=== PATIENT | female | born 1995 | race Caucasian/White ===

== ENCOUNTER 2023-01-04 13:25 | Emergency (ER) | payer SELFPAY ==
[~2023-01-04] VITALS: Ht 162.6 cm; Wt 127.4 kg
[2023-01-04] VITALS (7 sets, daily range): BP systolic 128–146; BP diastolic 78–88
[2023-01-04 14:41] LABS: URINE BILIRUBIN - DIPSTICK NEGATIVE (NEGATIVE); URINE BLOOD DIPSTICK TRACE-INTACT (NEGATIVE); URINE COLOR YELLOW; URINE GLUCOSE - DIPSTICK >=1000 mg/dL (NEGATIVE); URINE KETONE TRACE mg/dL (NEGATIVE); URINE LEUK ESTERASE NEGATIVE (NEGATIVE); URINE PROTEIN - DIPSTICK 100 mg/dL (NEG-TRACE); URINE UROBILINOGEN - DIPSTICK 0.2 E.U./dL (0.2)
[2023-01-04 14:42] LABS: BASO% 0.6 % (0-3); EOS% 1.3 % (0-8); HEMATOCRIT 45.5 % (37.0-47.0); HEMOGLOBIN 15.3 g/dl (12.0-16.0); IMMATURE GRANULOCYTES 0.4 % (0.0-5.0); LYMPH% 21.5 % (15-41); MEAN CELL VOLUME 83.8 fL CALC (80.0-100.0); MEAN CORPUSCULAR HGB 28.2 pG CALC (26.0-32.0); MEAN CORPUSCULAR HGB CONC 33.6 g/dL CAL (32.0-36.0); MONO% 6.1 % (2-13); NEUT# 8.49 thou/uL (2.00-7.15); NEUT% 70.1 % (42-76); RED BLOOD COUNT 5.43 mill/uL (4.20-5.60); RED CELL DISTRI WIDTH 12.8 % (11.5-15.5)
[2023-01-04 14:45] LABS: URINE NITRITE - DIPSTICK NEGATIVE (Negative)
[2023-01-04 14:46] LABS: URINE EPITHELIAL CELLS FEW EPI/hpf (0-FEW); URINE RBC 0-2 RBC/hpf (0-5)
[2023-01-04 14:47] LABS: URINE MUCUS MODERATE hpf (NONE-FEW)
[2023-01-04 15:02] LABS: ALBUMIN 4.4 g/dL (3.2-5.0); ALKALINE PHOSPHATASE 95 u/l (38-126); ANION GAP 14 (6-22 (CALC)); BILIRUBIN, TOTAL 0.3 mg/dL (0.02-1.3); BUN 10 mg/dL (7-17); BUN/CREATININE RATIO 19 (12-20 (CALC)); CARBON DIOXIDE 28 mmol/l (22-30); CHLORIDE 96 mmol/l (95-108); CREATININE 0.5 mg/dL (0.5-1.0); GFR FOR AFR.AMER. > 60 ML/MIN (>=60 (CALC)); GFR OTHER RACES > 60 ML/MIN (>=60 (CALC)); POTASSIUM 4.8 mmol/l (3.5-5.1); SGOT/AST 25 u/l (14-36); SODIUM 133 mmol/l (137-146); TOTAL PROTEIN 7.5 g/dL (6.3-8.2)
[2023-01-04] MEDS ORDERED: METFORMIN HCL1000 MG PO (17:03)
== END 2023-01-04 19:11 | disposition home or self-care (01) | DRG 392 ==
LOC: ED 13:25
PROVIDERS: Family Medicine
DX: R10.31 Right lower quadrant pain (principal); E11.9 Type 2 diabetes mellitus without complications; E66.01 Morbid (severe) obesity due to excess calories; Z98.1 Arthrodesis status; Z79.84 Long term (current) use of oral hypoglycemic drugs
CPT/HCPCS: Q9967

== ENCOUNTER 2023-04-23 14:11 | Emergency (ER) | payer BC ==
[2023-04-23] VITALS (7 sets, daily range): BP systolic 115–140; BP diastolic 75–103
[~2023-04-23] VITALS: Ht 162.6 cm; Wt 125.6 kg
[~2023-04-23 14:11] MED LIST: METFORMIN HCL1000 MG PO
[2023-04-23 14:42] LABS: BASO% 0.8 % (0-3); EOS% 2.2 % (0-8); HEMOGLOBIN 14.7 g/dl (12.0-16.0); IMMATURE GRANULOCYTES 0.3 % (0.0-5.0); LYMPH% 29.4 % (15-41); MEAN CELL VOLUME 84.5 fL CALC (80.0-100.0); MEAN CORPUSCULAR HGB 28.2 pG CALC (26.0-32.0); MEAN CORPUSCULAR HGB CONC 33.4 g/dL CAL (32.0-36.0); MONO% 6.2 % (2-13); NEUT# 5.39 thou/uL (2.00-7.15); NEUT% 61.1 % (42-76); RED BLOOD COUNT 5.21 mill/uL (4.20-5.60); RED CELL DISTRI WIDTH 12.2 % (11.5-15.5)
[2023-04-23 14:54] LABS: ALBUMIN 4.2 g/dL (3.2-5.0); ALKALINE PHOSPHATASE 106 u/l (38-126); ANION GAP 12 (6-22 (CALC)); BILIRUBIN, TOTAL 0.4 mg/dL (0.02-1.3); BUN 7 mg/dL (7-17); BUN/CREATININE RATIO 13 (12-20 (CALC)); CARBON DIOXIDE 26 mmol/l (22-30); CHLORIDE 97 mmol/l (95-108); CREATININE 0.5 mg/dL (0.5-1.0); GFR FOR AFR.AMER. > 60 ML/MIN (>=60 (CALC)); GFR OTHER RACES > 60 ML/MIN (>=60 (CALC)); LIPASE 75 u/l (23-300); POTASSIUM 4.3 mmol/l (3.5-5.1); SGOT/AST 28 u/l (14-36); SODIUM 131 mmol/l (137-146); TOTAL PROTEIN 7.7 g/dL (6.3-8.2)
[2023-04-23] MEDS ORDERED: MELOXICAM15 MG PO (15:01)
[2023-04-23] MEDS ORDERED: TRAMADOL HCL50 MG PO (15:01)
[2023-04-23 15:11] LABS: URINE BILIRUBIN - DIPSTICK NEGATIVE (NEGATIVE); URINE BLOOD DIPSTICK LARGE (NEGATIVE); URINE COLOR YELLOW; URINE GLUCOSE - DIPSTICK >=1000 mg/dL (NEGATIVE); URINE KETONE NEGATIVE (NEGATIVE); URINE LEUK ESTERASE NEGATIVE (NEGATIVE); URINE PH 6.5 (4.5-8.0); URINE PROTEIN - DIPSTICK TRACE mg/dL (NEG-TRACE); URINE UROBILINOGEN - DIPSTICK 0.2 E.U./dL (0.2)
[2023-04-23 15:12] LABS: URINE NITRITE - DIPSTICK NEGATIVE (Negative)
[2023-04-23 15:22] LABS: URINE RBC 50-100 RBC/hpf (0-5); URINE SQUAMOUS EPITHELIAL CELL FEW EPI/hpf (0-FEW)
== END 2023-04-23 18:21 | disposition home or self-care (01) | DRG 392 ==
LOC: ED 14:11
PROVIDERS: Family Medicine
DX: R10.31 Right lower quadrant pain (principal); E11.9 Type 2 diabetes mellitus without complications; N80.9 Endometriosis, unspecified; Z79.84 Long term (current) use of oral hypoglycemic drugs
CPT/HCPCS: Q9967

== ENCOUNTER 2023-11-25 16:14 | Emergency (ER) | payer BC ==
[~2023-11-25] VITALS: Ht 162.6 cm; Wt 119.0 kg
[~2023-11-25 16:14] MED LIST changes: +MELOXICAM15 MG PO; +TRAMADOL HCL50 MG PO
[2023-11-25] MEDS ORDERED: ONDANSETRON HCl 4 MG/2 ML SDV IV ONE (16:50)
[2023-11-25] MEDS ORDERED: MORPHINE SULFATE 4 MG/ML VIAL IV ONE (16:50)
[2023-11-25] MEDS ORDERED: SODIUM CHLORIDE 0.9% 1,000 ML IV ONE (16:50)
[2023-11-25 16:51] VITALS: BP 127/88
[2023-11-25 16:58] LABS: BASO% 0.6 % (0-3); EOS% 4.4 % (0-8); HEMOGLOBIN 15.3 g/dl (12.0-16.0); IMMATURE GRANULOCYTES 0.3 % (0.0-5.0); LYMPH% 27.2 % (15-41); MEAN CELL VOLUME 84.6 fL CALC (80.0-100.0); MEAN CORPUSCULAR HGB 28.8 pG CALC (26.0-32.0); MONO% 5.9 % (2-13); NEUT# 7.89 thou/uL (2.00-7.15); NEUT% 61.6 % (42-76); RED BLOOD COUNT 5.32 mill/uL (4.20-5.60); RED CELL DISTRI WIDTH 12.6 % (11.5-15.5)
[2023-11-25 17:27] LABS: URINE BILIRUBIN - DIPSTICK Negative (NEGATIVE); URINE BLOOD DIPSTICK Negative (NEGATIVE); URINE GLUCOSE - DIPSTICK 500 mg/dL (NEGATIVE); URINE KETONE Negative (NEGATIVE); URINE LEUK ESTERASE Negative (NEGATIVE); URINE NITRITE - DIPSTICK Negative (Negative); URINE PH 5.5 (4.5-8.0); URINE PROTEIN - DIPSTICK >=300 mg/dL (NEG-TRACE); URINE SPECIFIC GRAVITY >=1.030; URINE UROBILINOGEN - DIPSTICK 0.2 E.U./dL (0.2)
[2023-11-25 17:28] LABS: URINE COLOR Yellow
[2023-11-25 17:29] LABS: ALBUMIN 4.5 g/dL (3.2-5.0); ALKALINE PHOSPHATASE 81 u/l (38-126); BILIRUBIN, TOTAL 0.3 mg/dL (0.02-1.3); BUN 16 mg/dL (7-17); BUN/CREATININE RATIO 25 (12-20 (CALC)); CARBON DIOXIDE 23 mmol/l (22-30); CHLORIDE 106 mmol/l (95-108); CREATININE 0.6 mg/dL (0.5-1.0); GFR FOR AFR.AMER. > 60 ML/MIN (>=60 (CALC)); GFR OTHER RACES > 60 ML/MIN (>=60 (CALC)); SGOT/AST 24 u/l (14-36); TOTAL PROTEIN 8.5 g/dL (6.3-8.2)
[2023-11-25 17:34] LABS: URINE BACTERIA FEW hpf; URINE SQUAMOUS EPITHELIAL CELL FEW EPI/hpf (0-FEW); URINE WBC 0-2 WBC/hpf (0-5)
[2023-11-25 17:35] LABS: URINE HYALINE CAST FEW lpf (NONE-RARE)
[2023-11-25 17:38] LABS: ANION GAP 13 (6-22 (CALC)); SODIUM 138 mmol/l (137-146)
[2023-11-25 17:47] LABS: LIPASE 100 u/l (23-300)
[2023-11-25] MEDS ORDERED: MORPHINE SULFATE 4 MG/ML VIAL IV STA (18:14)
[2023-11-25 19:17] VITALS: BP 135/83
[2023-11-25] MEDS ORDERED: KETOROLAC TROMETHAMINE 15 MG/ML SDV IV ONE (19:20)
[2023-11-25] MEDS ORDERED: TRAMADOL HCL50 MG PO (22:01)
[2023-11-25 22:21] VITALS: BP 135/83
== END 2023-11-25 22:30 | disposition home or self-care (01) | DRG 392 ==
LOC: ED 16:14
PROVIDERS: Family Medicine
DX: R10.31 Right lower quadrant pain (principal); R30.0 Dysuria; E11.9 Type 2 diabetes mellitus without complications; Z79.84 Long term (current) use of oral hypoglycemic drugs
CPT/HCPCS: Q9967

== ENCOUNTER 2024-05-07 15:19 | Emergency (ER) | payer BC ==
[~2024-05-07] VITALS: Ht 162.6 cm; Wt 117.0 kg
[2024-05-07 15:25] VITALS: BP 143/75
[2024-05-07 15:31] VITALS: BP 144/88
[2024-05-07 15:46] VITALS: BP 124/82
[2024-05-07 15:49] LABS: BASO% 0.2 % (0-3); HEMATOCRIT 39.6 % (37.0-47.0); IMMATURE GRANULOCYTES 0.4 % (0.0-5.0); LYMPH% 21.9 % (15-41); MEAN CELL VOLUME 86.5 fL CALC (80.0-100.0); MEAN CORPUSCULAR HGB CONC 33.6 g/dL CAL (32.0-36.0); NEUT# 11.17 thou/uL (2.00-7.15); NEUT% 68.5 % (42-76); RED BLOOD COUNT 4.58 mill/uL (4.20-5.60); RED CELL DISTRI WIDTH 13.3 % (11.5-15.5)
[2024-05-07 15:54] LABS: HEMOGLOBIN 13.3 g/dl (12.0-16.0)
[2024-05-07 16:00] LABS: BILIRUBIN, TOTAL 0.3 mg/dL (0.02-1.3); CREATININE 0.5 mg/dL (0.5-1.0); POTASSIUM 3.6 mmol/l (3.5-5.1); TOTAL PROTEIN 7.2 g/dL (6.3-8.2)
[2024-05-07 16:01] VITALS: BP 134/77
[2024-05-07 16:15] VITALS: BP 126/69
== END 2024-05-07 17:52 | disposition home or self-care (01) | DRG 312 ==
LOC: ED 15:19
PROVIDERS: Nurse Practitioner
DX: R55 Syncope and collapse (principal); S00.91XA Abrasion of unspecified part of head, initial encounter; S63.502A Unspecified sprain of left wrist, initial encounter; O24.415 Gestational diabetes mellitus in pregnancy, controlled by oral hypoglycemic drugs; W01.198A Fall on same level from slipping, tripping and stumbling with subsequent striking against other object, initial encounter; Y92.89 Other specified places as the place of occurrence of the external cause; Y99.0 Civilian activity done for income or pay; Z3A.13 13 weeks gestation of pregnancy